=== PATIENT | male | born 1950 | race Caucasian/White ===

== ENCOUNTER 2019-06-27 16:06 | Emergency (ER) | payer BC, OTHER ==
[~2019-06-27] VITALS: Ht 185.4 cm; Wt 111.1 kg
[2019-06-27] MEDS ORDERED: NAPROSYN500 MG PO (18:19)
[2019-06-27] MEDS ORDERED: NORCO 5-325 TA1 EAC1 PO (18:19)
[2019-06-27] MEDS ORDERED: SENNA-DOCUSATE1 EAC1 PO (18:19)
[2019-06-27] MEDS ORDERED: NORFLEX100 MG PO (18:19)
[2019-06-27 18:24] VITALS: BP 174/64
== END 2019-06-27 18:40 | disposition home or self-care (01) ==
LOC: ER 16:06
DX: S01.111A Laceration without foreign body of right eyelid and periocular area, initial encounter (principal); S40.211A Abrasion of right shoulder, initial encounter; S50.811A Abrasion of right forearm, initial encounter; S80.211A Abrasion, right knee, initial encounter; W01.0XXA Fall on same level from slipping, tripping and stumbling without subsequent striking against object, initial encounter; Y93.89 Activity, other specified; Y92.481 Parking lot as the place of occurrence of the external cause; Y99.0 Civilian activity done for income or pay